=== PATIENT | female | born 1975 | race Two or more races ===

== ENCOUNTER 2019-08-29 14:04 | Emergency (ER) | payer MEDICAID ==
[~2019-08-29] VITALS: Ht 167.6 cm; Wt 86.2 kg
[2019-08-29] MEDS ORDERED: Tetanus/Diptheria/Pertussis IM ONE (14:15)
[2019-08-29] MEDS ORDERED: Bacitracin Oint UD TOPIC ONE (14:15)
--- NOTE | 2019-08-29 14:17 | NUR ---
ED Nurse Note: pt ambulated to ed c/o left knee laceration s/p falling in shower on thursday. pt denies head trauma pt reports pain as a tingling sensation no active bleeding.
[2019-08-29 14:18] VITALS: BP 153/84
--- NOTE | 2019-08-29 14:21 | Emergency Room Report ---
History of Present Illness General Chief Complaint: Laceration Source: Patient Present Illness HPI 43-year-old female presents to the emergency department complaining of laceration to the left knee x4 days. Patient is not sure when her last tetanus vaccination was. She denies bleeding at this time. She denies taking blood thinning medications. Patient reports she sustained lacerations when she slipped in the shower and was cut by glass. Patient reports she does not have a suspicion of retained foreign body. Patient reports 7 on 10 severity pain which is exacerbated upon palpation. No other aggravating or relieving factors at this time. She has been applying Neosporin at home. Allergies: Uncoded Allergies: PCN (Allergy, Unknown, 08/29/19) COVID-19 Screening Contact w/high risk pt: No Recent Travel to affected area: No Experienced COVID-19 symptoms?: No Patient History Past Medical History: see triage record Past Surgical History: none Pertinent Family History: none Last Menstrual Period: 07/22/19 Now: No Reviewed Nursing Documentation: PMH: Agreed; PSxH: Agreed Nursing Documentation-PMH Past Medical History: No Stated History Review of Systems All Other Systems: negative except mentioned in HPI Physical Exam Vital Signs Date Time Temp Pulse Resp B/P (MAP) Pulse Ox O2 Delivery O2 Flow Rate FiO2 08/29/19 14:10 98.2 99 18 153/84 (107) 98 Room Air Sp02 EP Interpretation: reviewed, normal General Appearance: no apparent distress, alert, GCS 15, non-toxic Head: normocephalic, atraumatic Eyes: bilateral eye normal inspection, bilateral eye PERRL ENT: hearing grossly normal, normal voice Neck: full range of motion Respiratory: lungs clear, normal breath sounds, speaking full sentences Cardiovascular #1: regular rate, rhythm Musculoskeletal: normal range of motion, gait/station normal, non-tender - no Bony ttp, no instability of the joint/ no increased laxity. Neurologic: alert, motor strength/tone normal, oriented x3, sensory intact, responsive, speech normal Psychiatric: judgement/insight normal Skin: laceration - Anterior Left knee laceration approx 3 cm in length- flap. with some surrounding erythema , pt. also with 1 cm superficial laceration on anterior left knee. Procedures Laceration/Wound Repair Laceration/Wound Repair : Consent: Verbal Wound Location: lower extremity - Left knee -anterior Wound's Depth, Shape: flap Wound Length (cm): 2 Wound Explored: contaminated - with dry scab/blood Wound Repaired With: Steri-strips - 4 Number of Sutures: 4 Layer Closure?: No Sterile Dressing Applied?: Yes Splint Applied?: Yes - DOROTEO wrap Sling Applied?: No Patient Tolerated: Well Complications: None Medical Decision Making PA Attestation Dr. Donovan is my supervising Physician whom patient management has been discussed with. Diagnostic Impression: Primary Impression: Laceration ER Course 43-year-old female presents to the emergency department complaining of laceration to the left knee x4 days. Patient is not sure when her last tetanus vaccination was. She denies bleeding at this time. She denies taking blood thinning medications. Patient reports she sustained lacerations when she slipped in the shower and was cut by glass. Patient reports she does not have a suspicion of retained foreign body. Patient reports 7 on 10 severity pain which is exacerbated upon palpation. No other aggravating or relieving factors at this time. She has been applying Neosporin at home. Ddx considered but are not limited to laceration, tendon injury, cellulitis, amputation Vital signs: are WNL, pt. is afebrile H&PE are most consistent with: Anterior Left knee laceration approx 3 cm in length- flap. with some surrounding erythema , pt. also with 1 cm superficial laceration on anterior left knee. ORDERS: none required at this time, the diagnosis is clinical ED INTERVENTIONS: -Tetanus vaccine was administered as pt. vaccination status was unknown. - The wound was copiously irrigated with normal saline, and explored for foreign body for which no FB was found. - The wound was approximated using steri strips. -sterile dressing is applied. -Doroteo wrap applied to the left knee by instrument and control technician. Pt. remains neurovascularly intact. Discussed with patient: That we make every effort to approximate the laceration as best as we can so that scarring will be as cosmetically pleasing as possible with our limited cosmetic skill set in the Emergency dept. Regardless of our best efforts there will be scarring after laceration repair. The extent of scarring is unknown at this time. DISCHARGE: At this time pt. is stable for d/c to home. Will provide printed patient care instructions, and any necessary prescriptions. Care plan and follow up instructions have been discussed with the patient prior to discharge. Last Vital Signs Date Time Temp Pulse Resp B/P (MAP) Pulse Ox O2 Delivery O2 Flow Rate FiO2 08/29/19 14:10 98.2 99 18 153/84 (107) 98 Room Air Disposition: HOME, SELF-CARE Condition: Stable Scripts Cephalexin* (KEFLEX*) 500 Mg Capsule 500 MG ORAL EVERY 12 HOURS, #14 CAP 0 Refills Prov: Franci Kelly 08/29/19 Referrals: Maureen Marquez Comp. [facility] + [facility] Patient Instructions: Nonsutured Laceration Care Additional Instructions: Take medications as directed. Follow up with a Primary Care Provider in 3-5 days, even if your symptoms have resolved. --Please review list of primary care clinics, if you do not already have a primary care provider Return sooner to ED if new symptoms occur, or current symptoms become worse. - Please note that this Emergency Department Report was dictated using The [employer] cam programmer technology software, occasionally this can lead to erroneous entry secondary to interpretation by the dictation equipment. Franci Kelly August 29, 2019 14:21
[2019-08-29] MEDS ORDERED: CEPHALEXIN500 MG ORAL (14:22)
--- NOTE | 2019-08-29 14:40 | NUR ---
ED Nurse Note: KNEE LACERATION; CLEANED AND STERI STRIPPED PER PA. PT KNE COVERED AND ACED WRAP PLACED PER PA ORDER
[2019-08-29 14:46] VITALS: BP 144/83
--- NOTE | 2019-08-29 14:47 | NUR ---
ER DISCHARGE NOTE: Patient is cleared to be discharged per ERMD, pt is aox4, on room air, with stable vital signs. pt was given dc and prescription instructions, pt was able to verbalize understanding, pt id band removed. pt is able to ambulate with steady gait. pt took all belongings.
== END 2019-08-29 14:48 | disposition home or self-care (01) ==
LOC: EMR 14:20
DX: S81.012A Laceration without foreign body, left knee, initial encounter (principal); Z23 Encounter for immunization; W01.0XXA Fall on same level from slipping, tripping and stumbling without subsequent striking against object, initial encounter; Y92.9 Unspecified place or not applicable
CPT/HCPCS: 90471; 90715; Z7502; 99282